=== PATIENT | female | born 1980 | race Caucasian/White ===

== ENCOUNTER 2018-02-15 18:09 | Emergency (ER) | payer MEDICAID, SELFPAY ==
[2018-02-15] MEDS ORDERED: Ketorolac Tromethamine 30 MG/ML VIAL ONE (18:37)
[2018-02-15] MEDS ORDERED: diphenhydrAMINE 50 MG/ML VIAL ONE (18:37)
[2018-02-15] MEDS ORDERED: Metoclopramide HCl 10 MG/2 ML VIAL ONE (18:37)
[2018-02-15 18:59] LABS: #Basophils 0.1 thou/uL (0.0-0.2); #Eosinphils 0.1 thou/uL (0.0-0.7); #Monocytes 0.5 thou/uL (0.11-0.59); #Neutrophils 4.4 thou/uL (1.40-6.50); %Basophils 0.8 % (0.0-1.0); %Eosinophils 1.4 % (0.0-10.0); %Lymphocytes 37.1 % (21.0-51.0); %Monocytes 5.7 % (0.0-10.0); %Neutrophils 55.1 % (42.0-75.0); Hemoglobin 11.7 g/dL (12.0-16.0); Mean Corpuscular HGB CONC 33.8 g/dL (32.0-36.0); Mean Corpuscular Hemoglobin 27.9 pg (27.0-31.0); Mean Corpuscular Volume 82.7 fL (78.0-98.0); Mean Platelet Volume 6.5 fL (7.4-10.4); Platelet Count 283 thou/uL (130-400); RBC Distribution Width 13.1 % (11.5-14.5)
[2018-02-15 19:21] LABS: ALT (SGPT) 26 U/L (8-55); AST (SGOT) 17 U/L (5-34); Albumin 3.8 g/dL (3.5-5.0); Alkaline Phosphatase 80 U/L (40-150); Anion Gap 9 mmol/L (10-20); BUN (Urea Nitrogen) 8 mg/dL (7.0-18.7); Bilirubin, Total 0.6 mg/dL (0.2-1.2); Calc. Creatinine Clearance 0 mL/min (70-130); Calcium 8.8 mg/dL (7.8-10.44); Carbon Dioxide 25 mmol/L (22-29); Chloride 107 mmol/L (98-107); Estimated GFR-MDRD 88; Globulin 2.8 g/dL (2.4-3.5); Glucose 91 mg/dL (70-105); Potassium 3.2 mmol/L (3.5-5.1); Protein, Total 6.6 g/dL (6.0-8.3); Sodium 138 mmol/L (136-145)
--- NOTE | 2018-02-15 20:21 | RAD ---
SHUNTOGRAM SIX IMAGES: Indication: History of stroke and intraperitoneal shunt placement. History of headache. FINDINGS: There is a PEG catheter within the left quadrant of the abdomen. The left frontal ventricular cathete r along its cranial segment appears intact. The course of the catheter along its subcutaneous course within the neck appears intact. The course along the left chest wall appears intact. The course coile d within the lower pelvis appears intact. There is two knob like portions of the catheter seen within the left midabdomen likely relating to a port junction that is likely intact. This type of VETERINARY PHARMACOLOGIST-cathet er I am unfamiliar with, but appears specifically designed to have this appearance. There is no overt disruption. The bowel gas pattern is unobstructed. The visualized lungs are clear. No definite osseo us abnormality is apparent. Portions of the right calvarium are missing. IMPRESSION: Visualized chest tubing appears intact. POS:
--- NOTE | 2018-02-15 20:25 | CT ---
CT HEAD WITHOUT CONTRAST: Indications: Headache. History of prior craniotomy. Cranial flap has not been placed. A COT ASSEMBLER shunt is in place. Comparison: There are no comparison studies. FINDINGS: Craniectomy changes. Large area of frontoparietal bone has been resected. There is volume loss of the right frontal lobe either due to surgery or prior insult. The ventricles have normal size and position. A shunt catheter enters via the left frontal lobe and t he tip enters through the left anterior horn and the tip overlies the midline. Ventricular size is wi thin normal range. No acute hemorrhage. No evidence of acute infarct. IMPRESSION: 1. Post op findings with large craniectomy defect. Volume loss and/or resection of the right frontal lobe and portions of the right temporal and parietal lobes. 2. Shunt catheter appears adequately positioned. 3. Ventricular size is within normal range. POS: MUSA
== END 2018-02-15 21:55 | disposition home or self-care (01) ==
LOC: ERS 18:09
DX: R51 Headache (principal); F32.9 Major depressive disorder, single episode, unspecified; Z79.899 Other long term (current) drug therapy; Z79.01 Long term (current) use of anticoagulants
CPT/HCPCS: 36415; 70450; 75809; 80053; 85025; 96365; 96366; 96375; J1200; J1885; J2765

== ENCOUNTER 2018-08-07 20:13 | Emergency (ER) | payer MEDICARE, SELFPAY ==
[2018-08-07 20:58] LABS: #Eosinphils 0.1 thou/uL (0.0-0.7); #Lymphocytes 1.3 thou/uL (1.20-3.40); #Monocytes 0.7 thou/uL (0.11-0.59); #Neutrophils 12.8 thou/uL (1.40-6.50); %Basophils 0.2 % (0.0-1.0); %Eosinophils 0.5 % (0.0-10.0); %Lymphocytes 8.9 % (21.0-51.0); %Monocytes 4.4 % (0.0-10.0); Hemoglobin 13.4 g/dL (12.0-16.0); Mean Corpuscular HGB CONC 33.4 g/dL (32.0-36.0); Mean Corpuscular Hemoglobin 27.6 pg (27.0-31.0); Mean Corpuscular Volume 82.7 fL (78.0-98.0); Mean Platelet Volume 6.7 fL (7.4-10.4); Platelet Count 307 thou/uL (130-400); RBC Distribution Width 13.8 % (11.5-14.5); Red Blood Cell (RBC) Count 4.85 mill/uL (4.20-5.40); White Blood Cell (WBC) Count 14.9 thou/uL (4.8-10.8)
[2018-08-07 21:27] LABS: ALT (SGPT) 25 U/L (8-55); AST (SGOT) 14 U/L (5-34); Albumin 3.9 g/dL (3.5-5.0); Alkaline Phosphatase 92 U/L (40-150); Anion Gap 13 mmol/L (10-20); BUN (Urea Nitrogen) 6 mg/dL (7.0-18.7); Bilirubin, Total 0.6 mg/dL (0.2-1.2); Calc. Creatinine Clearance 0 mL/min (70-130); Calcium 8.8 mg/dL (7.8-10.44); Carbon Dioxide 24 mmol/L (22-29); Chloride 106 mmol/L (98-107); Estimated GFR-MDRD Greater than 90; Globulin 3.1 g/dL (2.4-3.5); Glucose 105 mg/dL (70-105); Potassium 3.8 mmol/L (3.5-5.1); Sodium 139 mmol/L (136-145)
--- NOTE | 2018-08-07 22:40 | CT ---
BRAIN CT WITHOUT IV CONTRAST 08/07/18 HISTORY: 37-year-old female with history of new seizure onset, vomiting, history of CVA, right sided hemorrhag e. COMPARISON: 02/15/18. There is very extensive right craniectomy with very severe volume loss on the right side and extensiv e right sided encephalomalacia. This is mostly in the frontal, temporal, and anterior parietal region s. Left sided ventriculostomy tube in place. No new mass or hemorrhage. IMPRESSION: Stable extensive right sided craniectomy. Extensive encephalomalacia on the right side, stable. Left sided ventriculostomy tube. No mass or bleed. POS: MIN
[2018-08-07] MEDS ORDERED: Acetaminophen 500 MG TAB ONE (22:43)
[2018-08-07] MEDS ORDERED: levETIRAcetam 2,000 MG in Sodium Chloride 0.9% 100 ML IVPB ONE (22:45)
== END 2018-08-08 00:18 | disposition home or self-care (01) ==
LOC: ERS 20:13
DX: R56.9 Unspecified convulsions (principal); F41.9 Anxiety disorder, unspecified; F32.9 Major depressive disorder, single episode, unspecified; Z86.73 Personal history of transient ischemic attack (TIA), and cerebral infarction without residual deficits; Z79.899 Other long term (current) drug therapy
CPT/HCPCS: 36415; 70450; 80053; 85025; 93005; 96365; J1953; J7050

== ENCOUNTER 2020-01-16 01:08 | Inpatient (IN) | payer OTHER ==
[2020-01-16] MEDS ORDERED: Acetaminophen 325 MG TAB PO PRN ×2 (02:27→05:30)
[2020-01-16] MEDS ORDERED: Senokot S 8.6-50 MG TAB PO PRN ×2 (02:27→05:31)
[2020-01-16] MEDS ORDERED: levETIRAcetam In NaCl (Iso-Os) 1,000 MG in Premix Bag 1 BAG IVPB SCH ×3 (02:45→09:00)
[2020-01-16 04:51] LABS: #Basophils 0.1 thou/uL (0.0-0.2); #Eosinphils 0.2 thou/uL (0.0-0.7); #Lymphocytes 3.2 thou/uL (1.20-3.40); #Monocytes 0.7 thou/uL (0.11-0.59); %Basophils 0.6 % (0.0-1.0); %Lymphocytes 28.9 % (21.0-51.0); %Monocytes 6.3 % (0.0-10.0); %Neutrophils 62.3 % (42.0-75.0); Hemoglobin 14.2 g/dL (12.0-16.0); Mean Corpuscular HGB CONC 34.1 g/dL (32.0-36.0); Mean Corpuscular Hemoglobin 30.3 pg (27.0-31.0); Mean Corpuscular Volume 88.9 fL (78.0-98.0); Mean Platelet Volume 7.5 fL (7.4-10.4); Platelet Count 265 thou/uL (130-400); RBC Distribution Width 12.3 % (11.5-14.5); White Blood Cell (WBC) Count 11.2 thou/uL (4.8-10.8)
[2020-01-16 05:13] LABS: Anion Gap 11 mmol/L (10-20); BUN (Urea Nitrogen) Less than 4 mg/dL (7.0-18.7); Calc. Creatinine Clearance 0 mL/min (70-130); Calcium 8.5 mg/dL (7.8-10.44); Carbon Dioxide 18 mmol/L (22-29); Cardiac Risk 2.2 (Less than 4.5); Chloride 114 mmol/L (98-107); Cholesterol 65 mg/dl (< 200 Desired); Estimated GFR-MDRD Greater than 90; Glucose 81 mg/dL (70-105); HDL Cholesterol 29 mg/dL (>60 Neg Risk); LDL Cholesterol, Calculated 30 mg/dL; Potassium 3.6 mmol/L (3.5-5.1); Sodium 139 mmol/L (136-145); Triglycerides 28 mg/dL (Less than 150)
[2020-01-16 05:27] VITALS: BMI 27.0
--- NOTE | 2020-01-16 05:41 | HP ---
CHIEF COMPLAINT: Change in mental status. HISTORY OF PRESENT ILLNESS: The patient is a 39-year-old female with a history of stroke, status post craniotomy on the right side, who presents to the hospital with change in mental status x1 day. The patient's mother stated that the patient's daughter actually called her on Friday stating that the patient was confused and not talking. The patient normally at baseline is able to communicate. She is bed bound, but able to communicate without any problems. Per the patient's mom, Curt, the patient had about 4 seizures on Friday and had 2 seizures today, Friday. She is on medications for seizure precautions and has been compliant with her medications. Per patient's mom, the patient has not had any fevers or chills and has not been sick recently. The patient's seizures are normally left-sided stiffness and stares into space; however, she does not really have a postictal state. It appears to be focal seizures based on how she was describing. She also states that before the patient has a seizure, she feels a burning sensation of indigestion in her stomach area. PAST MEDICAL HISTORY: The patient has a history of strokes. 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 PAST SURGICAL HISTORY: She has had a shunt to her brain. She has a PEG tube. She has a craniotomy on the right side, tubal ligation. SOCIAL HISTORY: No alcohol use, drug use, or smoking history. She is a full code. She lives with her daughter. REVIEW OF SYSTEMS: Unable to obtain. The patient is really nonverbal. FAMILY HISTORY: History of cardiac disease in the family. PHYSICAL EXAMINATION: VITAL SIGNS: Temperature of 98.4, heart rate 82, respiratory rate 19, blood pressure 112/73, oxygen saturation 98% on room air. GENERAL: She is awake, follows commands. The patient is currently nonverbal. CV: S1 and S2 present. No murmurs, rubs, or gallops. LUNGS: Clear to auscultation. No rhonchi or wheezes noted. ABDOMEN: Soft and nontender. Bowel sounds are present x2. She does have a PEG tube. EXTREMITIES: She has mild 1+ lower extremity edema. NEUROVASCULAR: She does have weakness to her left upper extremity. She is able to move her left lower extremities bilaterally. The patient has a shunt to her left side of the brain. No pain upon palpation. She does have a significant craniotomy on the right side. LABORATORY RESULTS: As of the following; WBCs of 10.3, hemoglobin of 14.9, hematocrit of 46.5, platelets of 283. Chemistry; sodium 145, potassium of 4.2, BUN of 4, creatinine 0.84. LFTs are normal. The patient had a CT brain, which did not show any acute abnormalities. Per the ER doc, there was no read-up. ALLERGIES: SHE HAS NO KNOWN DRUG ALLERGIES. HOME MEDICATIONS: 1. Xarelto 20 mg daily. 2. Keppra 500 mg t.i.d. 3. Gabapentin 300 mg t.i.d. ASSESSMENT AND PLAN: The patient is a very pleasant 39-year-old female, who presents to the hospital for change in mental status. 1. Acute metabolic encephalopathy, could be secondary to seizure versus stroke versus malfunction of her shunt. We will put her on Keppra 1500 mg twice a day. Neurology has been consulted. We will do an EEG. We will do an MRI brain. Also we will get an echo. The patient has been taking Xarelto and has not had any seizures since Xarelto. We will await Neurology's recommendation. The patient's mother stated that she feels that her shunt appears to be more guzman than usual. I did palpate her shunt area, she had no pain, but there was some fullness; however, it is hard for me to say if it is draining or it is working appropriately. We may have to get Neurosurgery for this evaluation. 2. History of strokes. We will continue the Xarelto. We will get an MRI and echo. 3. Deep venous thrombosis prophylaxis. The patient is already on Xarelto. The patient was initially taken to [facility]; however, the patient's mom brought her here because per Curt, which is the patient's mom, stated that she would not be fed for about 3 days. I will go ahead and get a speech evaluation and also her Neurosurgeon is Dr. Travis and her Neurologist is Dr. Lau. Job ID: [id number]
[2020-01-16] MEDS: levETIRAcetam In NaCl (Iso-Os) 1,500 MG in Premix Bag 1 BAG IVPB SCH ×2 (08:49→21:04)
[2020-01-16] MEDS: Gabapentin 300 MG CAP PO SCH ×3 (08:53→21:05)
[2020-01-16] MEDS ORDERED: Enoxaparin Sodium 40 MG/0.4 ML SYRINGE SC SCH (09:00)
[2020-01-16] MEDS ORDERED: Gabapentin 300 MG CAP PO SCH (09:00)
--- NOTE | 2020-01-16 11:17 | PDOC.EVN ---
Event Note - Event Note Event Note: Spoke to the patient's grandmother. Patient's grandmother states she had three seizures yesterday at outside hospital. Prior to that, she had not had a seizure in three years. She states that there was drooling coming out of her mouth. Berto'ts grandmother was angry because they told her she wouldn't be fed for three days. Grandmother states that lately , patient has been off and making wild decisions. Normally she is more talkative, but lately she has been more drowsy. She has old stroke from two years ago with some left sided weakness Patient has no complaints no headache, numbness, weakness, SOB, chest pain Vitals : stable Gen: patient intermittently drowsy Head: craniotomy on right side. No palpable mass felt on right side of head Neuro: CN II - XII intact. LUE weakness, LLE weakness. 5/5 strength to finger cookie mixer helper and plantarflexion bilaterally Abdomen: +BS, soft, nontender, nondistended Extremities: no edema Labs; WBC 11.2 A/P: #Acute metabolic encephalopathy likely from seizure #History of CVA #History of shunt placement and craniotomy - on keppra 1500 mg IV bid. Neurology consulted. EEG ordered - MRI brain to be ordered. Neurosurgery consult if any shunt malfunction - continue xarelto #Leukocytosis - WBC 11.2, stable, will monitor
--- NOTE | 2020-01-16 13:04 | CON ---
DATE OF CONSULTATION: 01/16/2020 CONSULTING PHYSICIAN: Hospitalist Service. IMPRESSION: 1. Recurrent seizures. 2. Past history of right hemispheric stroke. 3. Residual left hemiparesis. PLAN: 1. Keppra is being increased to 1500 mg twice a day. 2. MRI of the brain to rule out any acute physical change. HISTORY OF PRESENT ILLNESS: Ms. Sue is a 39-year-old white female with reported history of a stroke 2 years ago. She has been on Xarelto since then. She lives in the [place] area. Her son reports that she is wheelchair bound. She is usually able to communicate and to push herself around with her foot. She had multiple breakthrough seizures earlier this week. Two days ago, she was taken to the [facility] due to the fact that she seemed to be slurring her speech. They were concerned that she may have had a stroke. She was admitted briefly. Apparently, family was concerned about the level of care. They subsequently brought her here and she was admitted for further evaluation. She had a CT of the brain, which showed a large impression of the right calvarium with ex vacuo changes and shunt in place. Her lab work showed an unremarkable CBC and serum chemistries other than a bicarb of 18. 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 PAST SURGICAL HISTORY: Shunt placement, PEG tube placement, craniotomy, tubal ligation. SOCIAL HISTORY: No alcohol or drugs. FAMILY HISTORY: Unremarkable. REVIEW OF SYSTEMS: 10-system review of systems is otherwise negative. PHYSICAL EXAMINATION: GENERAL: She is a well-nourished, middle-aged woman, in no distress. VITAL SIGNS: Blood pressure 112/73, pulse 82, respirations 16, and temperature 98.4. HEENT: The right cranium is concave. Pupils are equal. Conjunctivae clear. Oropharynx clear. NECK: Supple. No lymphadenopathy. CARDIOVASCULAR: Regular rate and rhythm. LUNGS: Clear. EXTREMITIES: No cyanosis or edema. NEUROLOGIC: She was alert and cooperative. She follows commands appropriately. Her speech was clear. Cranial nerves appear to be intact. Motor exam shows spastic weakness of the left arm and leg. She had antigravity strength with the leg, but not with the arm. Sensation was subjectively decreased on the left. Gait was not testable. LABORATORY STUDIES: Reviewed. IMAGING: Reviewed. SUMMARY: I agree with the increase in Keppra dose. I am uncertain as to the significance of the episode of dysarthria. She has been having multiple seizures, which could account for some transient speech change as well. I agree with your workup and be available if you have further questions. Job ID: [id number]
--- NOTE | 2020-01-16 13:47 | MRI ---
MRI BRAIN WITHOUT CONTRAST: History: 39-year-old female with seizures. Comparison: None. Correlation: CT scan 01-15-2020, 08-07-2018 FINDINGS: Post op changes of extensive right craniectomy and right sided encephalomalacia are again seen. The v entricular size is stable. There is a moderate sized area of restricted diffusion in the left MCA ter ritory. This demonstrates increased T2 signal and low signal on ADC map. No evidence of hemorrhage is seen. IMPRESSION: Acute left MCA infarction. POS: CARO
[2020-01-16] MEDS ORDERED: Aspirin 325 MG TAB PO SCH (16:15)
[2020-01-16] MEDS: Rivaroxaban 10 MG TAB PO SCH (17:46)
[2020-01-16] MEDS ORDERED: Rivaroxaban 10 MG TAB PO SCH (18:00)
[2020-01-16] MEDS ORDERED: Atorvastatin Calcium 40 MG TAB PO SCH (21:00)
[2020-01-16] MEDS: Atorvastatin Calcium 40 MG TAB PO SCH (21:06)
--- NOTE | 2020-01-16 21:44 | CON ---
DATE OF CONSULTATION: 01/16/2020 Ms. Sue is a very pleasant 39-year-old female with prior history of a right MCA stroke, requiring a right hemicraniectomy at an outside institution in [place] a few years ago. She has never had replacement of the bone flap, however, she recently saw Dr. Travis in August 2019 to discuss replacement. It was discussed that a 3D synthetic implant could be manufactured in order for Dr. Travis to pursue a right-sided cranioplasty. However, it seems that this plan was delayed due to COVID-19. The patient is currently admitted for stroke workup after recent seizures and onset of expressive aphasia. Family voiced concern that this may be related to a shunt malfunction, however, CT of the brain without contrast revealed stable findings and no hydrocephalus compared to prior study from July 2018. An MRI of the brain was performed, which shows a new left MCA infarct. On exam, the patient is awake, alert, and appropriate. She responds to questions appropriately. She is oriented to self, location, and year. She incorrectly stated the day of the week in the month, however. Cranial nerves II through XII are grossly intact. Pupils are equal, round, and reactive to light bilaterally. Extraocular movements are intact. No tongue fasciculations. She has chronic left-sided upper and lower extremity weakness from her prior right MCA stroke. However, she exhibits 5/5 strength throughout all right upper and lower extremity myotomes. Gait was not assessed. However, the patient reports that she is nonambulatory at baseline. I checked the patient's shunt setting and found it to be at 0.5 this evening. I could not locate any prior records indicating her shunt setting at baseline. Per review of shunt series completed in 2017, her shunt was previously set at 1.5. Therefore, I have reset the shunt to 1.5 this evening. I discussed with both the patient and her mother at bedside that I have no concerns for shunt malfunction at this time given her stable brain CT compared to prior studies. At this time, she will just need completion of her stroke workup and a Neurology consult. Our team will defer to Dr. Travis with regards to moving forward for manufacturing of synthetic bone implant and cranioplasty. We will update him about patient's hospitalization this weekend. From a neurosurgical standpoint, the patient is stable for discharge at any time. Please call for any questions or concerns. Job ID: [id number] EVERETTE
--- NOTE | 2020-01-17 08:09 | PRG ---
DATE OF SERVICE: 01/17/2020 This is a 50-minute initial hospital visit note, in which 50 minutes were spent reviewing the imaging record, evaluation and examination of the patient, and formulation of plan. Greater than 50% time was spent in counseling on Trini Sue. SUBJECTIVE: Ms. Sue is a 39-year-old woman, who in 2017, underwent a right frontotemporal-parietal hemicraniectomy for malignant MCA infarct and edema at [facility]. She subsequently had a left-sided shunt placed. They then relocated 2 hours from here and established care with Dr. Travis. The plan was for a custom skull implant back in August. 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 Nevertheless, the patient has been neurologically at her baseline until a few days ago when I was contacted by an outside institution in [facility] and stated that the patient was having periods of aphasia. They did not have an MRI scanner there and the suspicion was this may have been related to seizure. I did request a head CT that they had done then be sent to us. She was subsequently discharged or left AMA in the care of her mother and brought to [place], where she has been admitted. MRI demonstrates a left acute insular stroke. She now has bihemispheric infarcts. Surprisingly, she is neurologically at her baseline with baseline left-sided hemiplegia, but speech is intact and fluent this morning when I am seeing her. Her head CT again demonstrated stability compared to July 2018. MRI is as aforementioned. She has been initiated on Xarelto and is going to undergo a stroke workup with Neurology. I have let Dr. Travis's team know that the patient is here. We have checked her shunt. It was changed from 1.5 to 0.5 after the MRI. Given its programmable nature, we have put her back on 1.5. Obviously, consideration could be given to a CT scan per [employer] protocol for PEEK skull implants while the patient is here, but there is nothing urgent or emergent from a neurosurgical standpoint. Job ID: [id number]
[2020-01-17] MEDS: Gabapentin 300 MG CAP PO SCH ×3 (08:31→21:30)
[2020-01-17] MEDS: levETIRAcetam In NaCl (Iso-Os) 1,500 MG in Premix Bag 1 BAG IVPB SCH (08:31)
[2020-01-17 09:53] LABS: Hemoglobin 12.1 g/dL (12.0-16.0); Mean Corpuscular HGB CONC 33.7 g/dL (32.0-36.0); Mean Platelet Volume 6.8 fL (7.4-10.4); Platelet Count 230 thou/uL (130-400); RBC Distribution Width 12.2 % (11.5-14.5); Red Blood Cell (RBC) Count 4.02 mill/uL (4.20-5.40); White Blood Cell (WBC) Count 7.4 thou/uL (4.8-10.8)
--- NOTE | 2020-01-17 11:59 | PDOC.HOSPP ---
- Subjective Encounter Date: 01/17/20 Subjective: NEUROLOGY PROGRESS NOTE Patient alert , awake and following commands. No further seizures overnight. Keppra dose increased which she tolerated well. EEG ongoing. - Objective Vital Signs & Weight: Vital Signs (12 hours) Temp Pulse Resp BP BP Pulse Ox 01/17/20 07:45 97.8 F 63 16 95/56 L 96 01/17/20 04:00 98.5 F 78 16 95/57 L 97 01/17/20 00:15 97.7 F 64 18 90/52 L 96 Weight Weight 157 lb 6.4 oz I&O: 01/16/20 01/17/20 01/18/20 06:59 06:59 06:59 Intake Total 1560 Output Total 650 Balance 910 Result Diagrams: 01/17/20 09:35 01/16/20 04:37 Hospitalist ROS - Review of Systems Constitutional: denies: fever, chills, sweats, weakness, malaise, other Eyes: denies: pain, vision change, conjunctivae inflammation, eyelid inflammation, redness, other ENT: denies: ear pain, ear discharge, nose pain, nose discharge, nose congestion , mouth pain, mouth swelling, throat pain, throat swelling, other Respiratory: denies: cough, dry, shortness of breath, hemoptysis, SOB with excertion, pleuritic pain, sputum, wheezing, other Cardiovascular: denies: chest pain, palpitations, orthopnea, paroxysmal noc. dyspnea, edema, light headedness, other Gastrointestinal: denies: nausea, vomiting, abdominal pain, diarrhea, constipation, melena, hematochezia, other Genitourinary: denies: dysuria, frequency, incontinence, hematuria, retention, other Musculoskeletal: denies: neck pain, shoulder pain, arm pain, back pain, hand pain, leg pain, foot pain, other Neurological: reports: weakness, incoordination, confusion, seizures - Medication Medications: Active Medications Generic Name Dose Route Start Last Admin Trade Name Freq PRN Reason Stop Dose Admin Atorvastatin Calcium 40 mg 01/16/20 21:00 01/16/20 21:06 Lipitor PO 40 mg HS ALFONSO Administration Gabapentin 300 mg 01/16/20 09:00 01/17/20 08:31 Neurontin PO 300 mg TID ALFONSO Administration Levetiracetam 1,500 mg/ Device 100 mls @ 200 mls/hr 01/16/20 09:00 01/17/20 08:31 IVPB 100 mls BID ALFONSO Administration Rivaroxaban 20 mg 01/16/20 18:00 01/16/20 17:46 Xarelto PO 20 mg 1800 ALFONSO Administration - Exam General Appearance: awake alert Eye: PERRL Heart: RRR Respiratory: CTAB Gastrointestinal: soft Skin: normal turgor Neurological: facial droop, speech deficit Neurological - other findings: hemiparesis Psychiatric: normal affect, normal behavior, A&O x 3, oriented to person, oriented to place, oriented to time Hosp A/P (1) Breakthrough seizure Code(s): G40.919 - EPILEPSY, UNSP, INTRACTABLE, WITHOUT STATUS EPILEPTICUS Status: Acute Plan: 39 year old with epilepsy due to old CVA presented with acute infarction and 3 breakthrough seizures. Keppra dose increased to 1500 mg twice daily. Observe seizure precautions. Ativan 2 mg IV for seizures greater than 2 minutes. EEG ongoing. Will follow up on read. (2) Acute CVA (cerebrovascular accident) Code(s): I63.9 - CEREBRAL INFARCTION, UNSPECIFIED Status: Acute Plan: MRI brain reviewed which revealed acute infarction in left MCA territory Telemetry. Neurochecks every 4 hours. Check Hypercoaguable panel. Permissive BP control at this time. Check 2 D ech and carotid dopplers. Continue aspirin and statin for secondary stroke prevention. PT/OT/Speech. Plan discussed with the stroke floor team during MDR rounds and with the mother. (3) Hypertension Code(s): I10 - ESSENTIAL (PRIMARY) HYPERTENSION Status: Acute Plan: Permissive BP control at this time due to acute infarction. (4) Hyperlipidemia Code(s): E78.5 - HYPERLIPIDEMIA, UNSPECIFIED Status: Acute Plan: Continue high intensity statin for secondary stroke prevention. (5) Status post craniotomy Status: Acute Plan: Stable Neurosurgery on board. - Plan plan discussed w/ family, PT/OT, speech therapy, DVT proph w/SCDs
[2020-01-17 13:30] LABS: Chloride 108 mmol/L (98-107); Potassium 3.9 mmol/L (3.5-5.1); Sodium 139 mmol/L (136-145)
[2020-01-17 13:31] LABS: Calcium 8.4 mg/dL (7.8-10.44); Glucose 106 mg/dL (70-105)
[2020-01-17 13:33] LABS: Anion Gap 9 mmol/L (10-20); Carbon Dioxide 26 mmol/L (22-29)
[2020-01-17 13:35] LABS: Calc. Creatinine Clearance 107 mL/min (70-130); Estimated GFR-MDRD 80
[2020-01-17 13:36] LABS: BUN (Urea Nitrogen) 4 mg/dL (7.0-18.7)
[2020-01-17] MEDS ORDERED: Iopamidol-370 76% 500 ML 1 ML ONE (13:58)
[2020-01-17 15:08] LABS: Bacteria/HPF 3+ HPF (None Seen); Bilirubin Negative (Negative); Blood, Urine 3+ (Negative); Clarity Turbid (Clear); Glucose, Urine (Dipstick) Normal (Negative); Leukocyte 250 Leu/uL (Negative); Nitrite 1+ (Negative); Protein, Urine (Dipstick) 30 mg/dL (Neg-Trace); RBC/HPF Greater than 50 HPF (0-3); Squamous Epithelial 0-3 HPF (0-3); Urobilinogen Normal mg/dL (Less than 2)
--- NOTE | 2020-01-17 17:44 | ULT ---
CAROTID DOPPLER: Indications: Stroke workup Technique: Ultrasound and doppler study is performed of the extracranial carotid arteries. Color dopp ler and spectral analysis performed. FINDINGS: Right carotid system shows no significant plaque. Velocity recordings on the right are normal. On there is left there is plaque in the proximal left ICA and bulb which appears to produce significa nt stenosis. Velocities are elevated at 133 cm/sec systolic. Vertebral arteries show antegrade flow. IMPRESSION: Evidence of hemodynamically significant stenosis in the proximal left internal carotid artery. Recomm end further evaluation with CTA neck for better characterization. POS: AGW
[2020-01-17] MEDS: Rivaroxaban 10 MG TAB PO SCH (18:37)
--- NOTE | 2020-01-17 19:37 | PDOC.HOSPP ---
- Subjective Encounter Date: 01/17/20 Encounter Time: 10:30 Subjective: The patient has had no seizures overnight. She has no new complaints. She only has mild headache. Has baseline left sided weakness Mom states that patient had prior stroke two years ago. She had DVT and was found to have a PFO and underwent a mechanical thrombectomy after which she developed hydrocephalus requiring shunt placement - Objective Vital Signs & Weight: Vital Signs (12 hours) Temp Pulse Resp BP BP Pulse Ox 01/17/20 16:00 98.6 F 57 L 16 94/43 L 99 01/17/20 12:00 98.3 F 84 16 94/64 98 01/17/20 07:45 97.8 F 63 16 95/56 L 96 Weight Admit Weight 157 lb 6.4 oz Weight 157 lb 6.4 oz I&O: 01/16/20 01/17/20 01/18/20 06:59 06:59 06:59 Intake Total 1560 1100 Output Total 650 600 Balance 910 500 Result Diagrams: 01/17/20 09:35 01/17/20 12:56 Hospitalist ROS - Review of Systems Constitutional: denies: fever, chills - Medication Medications: Active Medications Generic Name Dose Route Start Last Admin Trade Name Freq PRN Reason Stop Dose Admin Atorvastatin Calcium 40 mg 01/16/20 21:00 01/16/20 21:06 Lipitor PO 40 mg HS ALFONSO Administration Gabapentin 300 mg 01/16/20 09:00 01/17/20 14:46 Neurontin PO 300 mg TID ALFONSO Administration Levetiracetam 1,500 mg/ Device 100 mls @ 200 mls/hr 01/16/20 09:00 01/17/20 08:31 IVPB 100 mls BID ALFONSO Administration Rivaroxaban 20 mg 01/16/20 18:00 01/17/20 18:37 Xarelto PO 20 mg 1800 ALFONSO Administration - Exam General - other findings: crowsy Eye: PERRL, anicteric sclera ENT: normocephalic atraumatic, no oropharyngeal lesions Neck: supple, no JVD Heart: RRR, no murmur, no gallops, no rubs Respiratory: CTAB, no wheezes, no rales, no ronchi Gastrointestinal: soft, non-tender, non-distended, normal bowel sounds Extremities: no cyanosis, no clubbing, no edema Skin: normal turgor, no lesions, no rashes Neurological: cranial nerve grossly intact, normal sensation to touch, no focal deficits, no new deficit Neurological - other findings: left sided weakness, cannot lift arm, can lift leg. Right 5/5 upper and low Musculoskeletal: normal tone, normal strength, no muscle wasting Psychiatric: normal affect, normal behavior, A&O x 3, oriented to person Hosp A/P - Plan Carotid doppler: hemodynamically significant stenosis in the proximal left ICA. MRI brain: acute left MCA infarction This is a 39 year old female presenting with difficulty speaking, slurred speech , found to have a stroke Acute left MCA infarction - started aspirin 81 mg, continue xarelto and statin - carotid doppler showing hemodynamically significant stenosis in proximal left ICA. Will check CTA neck - PT/OT and speech recommending home health. Case management was consulted Acute metabolic encephalopathy secondary to seizure - EEG normal per Dr Jacinto - will switch keppra to oral 1500 mg bid #History of DVT and PFO #History of prior CVA with left sided weakness # History of intracranial shunt - continue xarelto - no hydrocephalus on exam. Per neurosurgery no further workup needed from that standpoint
[2020-01-17] MEDS: levETIRAcetam 500 MG TAB PO SCH (21:29)
[2020-01-17] MEDS: Atorvastatin Calcium 40 MG TAB PO SCH (21:30)
--- NOTE | 2020-01-18 07:48 | CT ---
CT ANGIO OF NECK PERFORMED WITH INTRAVENOUS CONTRAST ENHANCEMENT AND 3D RECONSTRUCTIONS: History: Stroke. Abnormal left internal carotid artery reported on recent carotid ultrasound. Comparison: Carotid ultrasound done earlier today. FINDINGS: The lung apices are clear. Thyroid gland is within normal limits of size. No significant jugular anshu n adenopathy. The parotid and submandibular gland regions appear unremarkable. Parapharyngeal spaces appear clear. The angiographic portion of this study demonstrates a separate origin of the left internal carotid ar brianna from the aortic arch. The vertebral arteries shows the left to be slightly larger than the right but both contribute to the basilar artery. On the right side the right common carotid as well as internal and external carotid arteries show no significant stenosis. On the left side the left common carotid artery is normal in appearance. There is prominent soft plaq ue formation in the proximal left internal carotid artery over an approximately 1.7 cm segment. The d istal tip of this thrombus is surrounded by contrast and the possibility that this would dislodge be a definite consideration. There is significant narrowing of the internal carotid artery related to th is prominent soft plaque. It is felt to represent greater than 60-70% narrowing at its most significa nt area of stenosis. IMPRESSION: Very prominent soft plaque formation over a fairly long segment of the proximal internal carotid onel ry with 60-70% narrowing. The more distal end of the thrombus is encircled by contrast suggesting betty t this is a free floating fragment and the possibility that this could embolize would be a strong con sideration in this case. POS: JHONNY
[2020-01-18] MEDS: levETIRAcetam 500 MG TAB PO SCH ×2 (09:33→21:12)
[2020-01-18] MEDS: Gabapentin 300 MG CAP PO SCH ×3 (09:33→21:12)
[2020-01-18] MEDS: Aspirin 81 mg Enteric Coated Tablet PO SCH (09:33)
--- NOTE | 2020-01-18 09:35 | EEG ---
DATE OF SERVICE: 01/17/2020 ATTENDING PHYSICIAN: Sandy Jacinto MD. This EEG was performed using 24-channel [employer] video digital EEG machine with 24-disk electrodes. This was an extended 2-hour 7-minute of inpatient video EEG recording. Digital analysis of the EEG was done for spike and seizure detection, which revealed no abnormalities. BACKGROUND: Posterior background rhythm was not observed. HYPERVENTILATION: Not performed. PHOTIC STIMULATION: Not performed. SLEEP: Drowsiness and sleep observed. EEG DIAGNOSIS: 1. High amplitude theta delta activity, at times intermixed with rare spikes seen in the right frontotemporal region. 2. Irregular theta activity seen throughout the recording with superimposed beta. 3. Absence of posterior background rhythm. CLINICAL INTERPRETATION: This EEG is consistent with interictal expression of partial epilepsy with potential epileptogenicity in the right frontotemporal region in the setting of focal cerebral dysfunction in the same region. There is also evidence of moderate generalized nonspecific cerebral dysfunction. No electrographic seizures captured during the recording. Job ID: [id number]
--- NOTE | 2020-01-18 12:49 | PDOC.HOSPP ---
- Subjective Encounter Date: 01/17/20 Subjective: NEUROLOGY PROGRESS NOTE Patient alert , awake and following commands. No further seizures since admission. Keppra dose increased which she tolerated well. EEG negative for seizures. - Objective Vital Signs & Weight: Vital Signs (12 hours) Temp Pulse Pulse Resp BP BP Pulse Ox 01/18/20 11:22 98.3 F 77 16 92/58 L 98 01/18/20 08:50 78 92/57 L 01/18/20 07:52 97.5 F L 69 18 93/53 L 98 01/18/20 04:38 97.4 F L 63 14 92/52 L 96 Weight Admit Weight 157 lb 6.4 oz Weight 157 lb 6.4 oz I&O: 01/17/20 01/18/20 01/19/20 06:59 06:59 06:59 Intake Total 1560 1340 Output Total 650 600 Balance 910 740 Result Diagrams: 01/17/20 09:35 01/17/20 12:56 Radiology Reviewed by me: Yes EKG Reviewed by me: Yes Hospitalist ROS - Review of Systems Constitutional: denies: fever, chills, sweats, weakness, malaise, other Eyes: denies: pain, vision change, conjunctivae inflammation, eyelid inflammation, redness, other ENT: denies: ear pain, ear discharge, nose pain, nose discharge, nose congestion , mouth pain, mouth swelling, throat pain, throat swelling, other Respiratory: denies: cough, dry, shortness of breath, hemoptysis, SOB with excertion, pleuritic pain, sputum, wheezing, other Cardiovascular: denies: chest pain, palpitations, orthopnea, paroxysmal noc. dyspnea, edema, light headedness, other Gastrointestinal: denies: nausea, vomiting, abdominal pain, diarrhea, constipation, melena, hematochezia, other Genitourinary: denies: dysuria, frequency, incontinence, hematuria, retention, other Musculoskeletal: denies: neck pain, shoulder pain, arm pain, back pain, hand pain, leg pain, foot pain, other Skin: denies: rash, lesions, kwabena, bruising, other Neurological: reports: weakness, numbness, confusion, seizures. denies: incoordination, change in speech, other - Medication Medications: Active Medications Generic Name Dose Route Start Last Admin Trade Name Freq PRN Reason Stop Dose Admin Aspirin 81 mg 01/18/20 09:00 01/18/20 09:33 Ecotrin PO 81 mg DAILY ALFONSO Administration Atorvastatin Calcium 40 mg 01/16/20 21:00 01/17/20 21:30 Lipitor PO 40 mg HS ALFONSO Administration Gabapentin 300 mg 01/16/20 09:00 01/18/20 09:33 Neurontin PO 300 mg TID ALFONSO Administration Levetiracetam 1,500 mg 01/17/20 21:00 01/18/20 09:33 Keppra PO 1,500 mg BID ALFONSO Administration Rivaroxaban 20 mg 01/16/20 18:00 01/17/20 18:37 Xarelto PO 20 mg 1800 ALFONSO Administration Sodium Chloride 10 ml 01/16/20 05:31 01/18/20 09:34 Flush - Normal Saline IVF 10 ml PRN PRN Administration Saline Flush - Exam General Appearance: awake alert Eye: PERRL ENT: normocephalic atraumatic Neck: supple Heart: RRR Respiratory: CTAB Gastrointestinal: soft Extremities: no cyanosis Skin: normal turgor Neurological: no new deficit, facial droop, hemiplegia, speech deficit Psychiatric: normal affect, normal behavior, A&O x 3, oriented to person, oriented to place, oriented to time Hosp A/P (1) Breakthrough seizure Code(s): G40.919 - EPILEPSY, UNSP, INTRACTABLE, WITHOUT STATUS EPILEPTICUS Status: Acute Plan: Continue Keppra dose 1500 mg twice daily. Observe seizure precautions. Ativan 2 mg IV for seizures greater than 2 minutes. EEG reviewed which was negative for seizures (2) Acute CVA (cerebrovascular accident) Code(s): I63.9 - CEREBRAL INFARCTION, UNSPECIFIED Status: Acute Plan: MRI brain reviewed which revealed acute infarction in left MCA territory Telemetry. Neurochecks every 4 hours. Strict BP and BG control . Continue xarelto. Continue aspirin and statin for secondary stroke prevention. PT/OT/Speech. 2D echo completed. Results noted. Carotid dopplers revealed Lt ICA significant stenosis. Consider CV surgery input. (3) Hypertension Code(s): I10 - ESSENTIAL (PRIMARY) HYPERTENSION Status: Acute Plan: Continue medical management per primary team. (4) Hyperlipidemia Code(s): E78.5 - HYPERLIPIDEMIA, UNSPECIFIED Status: Acute Plan: Continue high intensity statin for secondary stroke prevention. (5) Status post craniotomy Status: Acute Plan: Stable Neurosurgery on board.
--- NOTE | 2020-01-18 13:27 | PDOC.EVN ---
Event Note - Event Note Event Note: Pt needs more assistance with ADL an would benefit from increased provider hours for home health and home care
--- NOTE | 2020-01-18 16:05 | PDOC.HOSPP ---
- Subjective Encounter Date: 01/18/20 Encounter Time: 10:00 Subjective: The patient states that she has no headaches. No seizures overnight. CTA positive for embolus. Patient unable to move left arm which is baseline, but can move left leg. Right side she is able to move - Objective Vital Signs & Weight: Vital Signs (12 hours) Temp Pulse Pulse Resp BP BP Pulse Ox 01/18/20 14:56 98.0 F 76 16 95/57 L 99 01/18/20 11:22 98.3 F 77 16 92/58 L 98 01/18/20 08:50 78 92/57 L 01/18/20 07:52 97.5 F L 69 18 93/53 L 98 01/18/20 04:38 97.4 F L 63 14 92/52 L 96 Weight Admit Weight 157 lb 6.4 oz Weight 157 lb 6.4 oz I&O: 01/17/20 01/18/20 01/19/20 06:59 06:59 06:59 Intake Total 1560 1340 Output Total 650 600 Balance 910 740 Result Diagrams: 01/17/20 09:35 01/17/20 12:56 Hospitalist ROS - Review of Systems Constitutional: denies: fever, chills - Medication Medications: Active Medications Generic Name Dose Route Start Last Admin Trade Name Freq PRN Reason Stop Dose Admin Aspirin 81 mg 01/18/20 09:00 01/18/20 09:33 Ecotrin PO 81 mg DAILY ALFONSO Administration Atorvastatin Calcium 40 mg 01/16/20 21:00 01/17/20 21:30 Lipitor PO 40 mg HS ALFONSO Administration Gabapentin 300 mg 01/16/20 09:00 01/18/20 14:12 Neurontin PO 300 mg TID ALFONSO Administration Levetiracetam 1,500 mg 01/17/20 21:00 01/18/20 09:33 Keppra PO 1,500 mg BID ALFONSO Administration Rivaroxaban 20 mg 01/16/20 18:00 01/17/20 18:37 Xarelto PO 20 mg 1800 ALFONSO Administration Sodium Chloride 10 ml 01/16/20 05:31 01/18/20 09:34 Flush - Normal Saline IVF 10 ml PRN PRN Administration Saline Flush - Exam General Appearance: NAD, awake alert Eye: PERRL, anicteric sclera ENT: normocephalic atraumatic, no oropharyngeal lesions Neck: no JVD Heart: RRR, no murmur, no gallops, no rubs, normal peripheral pulses Respiratory: CTAB, no wheezes, no rales Gastrointestinal: soft, non-tender, non-distended, normal bowel sounds Extremities: no cyanosis, no clubbing, no edema Skin: normal turgor, no lesions, no rashes Neurological: cranial nerve grossly intact, normal sensation to touch, no focal deficits, no new deficit Neurological - other findings: cannot move left arm, can lift left leg. Dec strength left leg. 11/29 RUE/RLE Musculoskeletal: normal tone, normal strength, no muscle wasting Psychiatric: normal affect, normal behavior, A&O x 3, oriented to person Hosp A/P - Plan Carotid doppler: hemodynamically significant stenosis in the proximal left ICA. MRI brain: acute left MCA infarction CTA Neck: soft plaque formation, proximal ICA narrowing 60-70%. More distal end of thrombus encircled by contrast suggesting it is a free floating fragment This is a 39 year old female presenting with difficulty speaking, slurred speech , found to have a stroke Acute left MCA infarction with significant ICA stenosis - started aspirin 81 mg, continue xarelto and statin - carotid doppler showing hemodynamically significant stenosis in proximal left ICA. CTA neck shows possible thrombus - consulted vascular surgery, will likely perform surgery while here - home health on discharge Acute metabolic encephalopathy secondary to seizure - EEG normal per Dr Jacinto - continue keppra to oral 1500 mg bid #History of DVT and PFO #History of prior CVA with left sided weakness # History of intracranial shunt - continue xarelto - no hydrocephalus on exam. Per neurosurgery no further workup needed from that standpoint
[2020-01-18] MEDS ORDERED: Enoxaparin Sodium 80 MG/0.8 ML SYRINGE SC SCH ×2 (21:00)
[2020-01-18] MEDS: Atorvastatin Calcium 40 MG TAB PO SCH (21:12)
--- NOTE | 2020-01-19 00:57 | CON ---
DATE OF CONSULTATION: HISTORY OF PRESENT ILLNESS: This is a 39-year-old female, status post right hemispheric CVA about 3 years ago, requiring craniectomy. She was admitted Friday after 2 days of altered mental status and a couple of seizures. She had an MRI of the brain suggesting an acute left hemispheric stroke, and a CTA of her carotids showed a thrombus with trailing thrombus in her left internal carotid artery at the carotid bifurcation. Evidently, she was diagnosed as having DVT with paradoxical embolus due to a patent foramen ovale 3 years ago in [place] at the time of her prior stroke. However, the PFO was not fixed as they were waiting for her to resolve her craniectomy issues. She has seen Dr. Travis for this time; however, nothing has been done in particular. She has had a shunt for hydrocephalus as well as a PEG tube. OBJECTIVE: GENERAL: On examination, she is alert, cooperative lady with left arm complete paresis. She has some weakness in her left leg, but it is able to be moved. Speech appears normal during my examination. NECK: No carotid bruits. LUNGS: Clear to auscultation. CARDIAC: Regular rate and rhythm. She has no murmurs or gallops. ABDOMEN: She has a PEG tube. EXTREMITIES: Lower extremities, I do not appreciate any edema. She has palpable femoral pulse and I do not appreciate pedal pulses. Echocardiogram at this time without bubble study was normal. MRI as noted. CT angiogram as noted. Interestingly, her carotid Doppler study showed plaque in the proximal left ICA and bulb with apparent significant stenosis, but velocities were only elevated to 133 cm/second. At this time, I think that she probably needs thrombectomy and patch over left internal carotid artery and then consideration needs to be given to a PFO closure after appropriate echo studies confirm that she does have a PFO. Currently, she is maintained on Xarelto, and I will hold that tonight and plan on surgical intervention tomorrow. Job ID: [id number]
[2020-01-19] MEDS: Aspirin 81 mg Enteric Coated Tablet PO SCH (08:05)
[2020-01-19] MEDS: Gabapentin 300 MG CAP PO SCH ×3 (08:05→20:51)
[2020-01-19] MEDS: levETIRAcetam 500 MG TAB PO SCH ×2 (08:09→20:51)
--- NOTE | 2020-01-19 09:11 | CT ---
Exam: Head CT without contrast HISTORY: Cranial defect. Scan for cranioplasty. COMPARISON: 01/15/2020 FINDINGS: Hemorrhage: No intraparenchymal hemorrhage or extra-axial hematoma. Brain parenchyma: Stable volume loss involving the right cerebrum.Hypodensity in the left temporal lo be is noted. Ventricular system: Stable appearance of the ventricular system. No evidence of significant hydroceph alus. Stable left-sided ventriculoperitoneal shunt catheter. Calvarium: Postsurgical changes compatible with [place] hole defects and right calvarial craniectomy are noted. Sinuses and mastoid air cells: Mild mucosal thickening of the paranasal sinuses IMPRESSION: Stable postsurgical changes.
[2020-01-19] MEDS ORDERED: Fentanyl 100 MCG/2 ML VIAL ONE ×3 (09:19→13:14)
[2020-01-19] MEDS ORDERED: Midazolam HCl 2 mg/2 ml Vial ONE ×2 (09:19→10:19)
[2020-01-19] MEDS ORDERED: niCARdipine 25 MG/10 ML VIAL ONE (09:20)
[2020-01-19] MEDS ORDERED: Phenylephrine 10 MG/ML VIAL ONE (09:20)
[2020-01-19] MEDS ORDERED: Heparin 5,000 UNITS/ML VIAL ONE (10:21)
[2020-01-19] MEDS ORDERED: Protamine Sulfate 50 MG/5 ML VIAL ONE (10:21)
[2020-01-19] MEDS ORDERED: EPINEPHrine 1 MG/ML AMP ONE (11:36)
[2020-01-19] MEDS ORDERED: Bupivacaine PF 0.5% 30 ML VIAL ONE (11:36)
[2020-01-19] MEDS ORDERED: Glycopyrrolate 0.2 MG/ML 5 ML SYRINGE ONE (12:03)
[2020-01-19] MEDS ORDERED: Ondansetron PF 4 MG/2 ML Vial ONE (12:03)
[2020-01-19] MEDS ORDERED: Rocuronium Bromide 10 MG/ML (10ML VIAL) ONE (12:03)
[2020-01-19] MEDS ORDERED: Lidocaine 1% PF 5 ML VIAL ONE (12:03)
[2020-01-19] MEDS ORDERED: PROPOFOL 200 MG/20 ML VIAL ONE (12:03)
[2020-01-19] MEDS ORDERED: PHENYLEPHRINE-NS 100 MCG/ML 10 ML SYRINGE ONE (12:03)
[2020-01-19] MEDS ORDERED: PACU-Morphine 4MG/ML VIAL SLOW IVP PRN (12:07)
[2020-01-19] MEDS ORDERED: Promethazine HCl 25 MG/ML VIAL SLOW IVP PRN (12:07)
[2020-01-19] MEDS ORDERED: Promethazine HCl 25 MG/ML VIAL IM PRN (12:07)
[2020-01-19] MEDS ORDERED: Ondansetron HCl/PF 4 MG/2 ML Vial IVP PRN (12:07)
[2020-01-19] MEDS ORDERED: HYDROmorphone 2 MG/ML VIAL SLOW IVP PRN (12:07)
--- NOTE | 2020-01-19 14:14 | PDOC.HOSPP ---
- Subjective Encounter Date: 01/19/20 Encounter Time: 08:00 Subjective: The patient is doing well. She is scheduled for carotid endarterectomy today . She has no new weakness or numbness on right side - Objective Vital Signs & Weight: Vital Signs (12 hours) Temp Pulse Resp BP BP BP Pulse Ox 01/19/20 07:51 98.1 F 64 16 89/50 L 98 01/19/20 06:10 99/56 L 01/19/20 05:39 97.6 F 64 20 82/50 L 98 Weight Admit Weight 157 lb 6.4 oz Weight 157 lb 6.4 oz I&O: 01/18/20 01/19/20 01/20/20 06:59 06:59 06:59 Intake Total 1340 900 Output Total 600 475 Balance 740 425 Result Diagrams: 01/17/20 09:35 01/17/20 12:56 Hospitalist ROS - Review of Systems Constitutional: denies: fever, chills - Medication Medications: Active Medications Generic Name Dose Route Start Last Admin Trade Name Justusq PRN Reason Stop Dose Admin Aspirin 81 mg 01/18/20 09:00 01/19/20 08:05 Ecotrin PO 81 mg DAILY ALFONSO Administration Atorvastatin Calcium 40 mg 01/16/20 21:00 01/18/20 21:12 Lipitor PO 40 mg HS ALFONSO Administration Enoxaparin Sodium 80 mg 01/18/20 21:00 01/18/20 21:13 Lovenox SC 80 mg 2100 ALFONSO Administration Gabapentin 300 mg 01/16/20 09:00 01/19/20 08:05 Neurontin PO 300 mg TID ALFONSO Administration Levetiracetam 1,500 mg 01/17/20 21:00 01/19/20 08:09 Keppra PO 1,500 mg BID ALFONSO Administration Sodium Chloride 10 ml 01/16/20 05:31 01/18/20 09:34 Flush - Normal Saline IVF 10 ml PRN PRN Administration Saline Flush - Exam General Appearance: NAD, awake alert General - other findings: craniotomy on the right side Eye: PERRL, anicteric sclera ENT: normocephalic atraumatic, no oropharyngeal lesions Neck: no JVD Heart: RRR, no murmur, no gallops, no rubs Respiratory: CTAB, no wheezes, no rales, no ronchi Gastrointestinal: soft, non-tender, non-distended, normal bowel sounds Extremities: no cyanosis, no clubbing, no edema Skin: normal turgor, no lesions, no rashes Neurological: cranial nerve grossly intact, normal sensation to touch, no focal deficits, no new deficit Neurological - other findings: chronic weakness on left side. 5/5 strength and ROM right side Hosp A/P - Plan Carotid doppler: hemodynamically significant stenosis in the proximal left ICA. MRI brain: acute left MCA infarction CTA Neck: soft plaque formation, proximal ICA narrowing 60-70%. More distal end of thrombus encircled by contrast suggesting it is a free floating fragment This is a 39 year old female presenting with difficulty speaking, slurred speech , found to have a stroke Acute left MCA infarction with significant ICA stenosis - started aspirin 81 mg, continue xarelto and statin - carotid doppler showing hemodynamically significant stenosis in proximal left ICA. CTA neck shows possible thrombus - consulted vascular surgery, plan for carotid endarterectomy today Acute metabolic encephalopathy secondary to seizure - EEG normal per Dr Jacinto - continue keppra oral 1500 mg bid #History of DVT and PFO #History of prior CVA with left sided weakness # History of intracranial shunt - continue xarelto - no hydrocephalus on exam. Per neurosurgery no further workup needed from that standpoint - will need PFO correction as an outpatient.
[2020-01-19] MEDS ORDERED: traMADol HCl 50 MG TAB PO PRN (16:20)
[2020-01-19] MEDS ORDERED: Ondansetron PF 4 MG/2 ML Vial IVP PRN (16:20)
[2020-01-19] MEDS ORDERED: Fentanyl 100 MCG/2 ML VIAL SLOW IVP PRN (16:20)
[2020-01-19] MEDS ORDERED: Ketorolac Tromethamine 30 MG/ML VIAL IVP PRN (16:20)
[2020-01-19] MEDS ORDERED: Sodium Chloride 0.9% 1,000 ML IV SCH (16:20)
--- NOTE | 2020-01-19 18:11 | PDOC.EVN ---
Event Note - Event Note Event Note: Attempted calling mother twice without success
[2020-01-19] MEDS: Atorvastatin Calcium 40 MG TAB PO SCH (20:51)
[2020-01-19] MEDS ORDERED: Enoxaparin Sodium 40 MG/0.4 ML SYRINGE SC SCH (21:00)
--- NOTE | 2020-01-20 08:54 | OP ---
DATE OF PROCEDURE: 01/19/2020 PREOPERATIVE DIAGNOSIS: Thrombus, internal carotid artery. POSTOPERATIVE DIAGNOSIS: Thrombus, internal carotid artery. PROCEDURE PERFORMED: Thrombectomy with patch angioplasty, left internal carotid artery. DESCRIPTION OF PROCEDURE: After adequate anesthesia had been obtained, ultrasound had been used to mauri the proposed site of incision and it was carried out. After exposing the common internal and external carotid artery, the patient was heparinized and a tape placed around the common and external carotid artery. Care was taken to minimize manipulation. Following heparinization, clamp was applied to the external common carotid artery and arteriotomy performed. There was fresh thrombus in the bulb region and in the process of opening the incision, this was aspirated in the suction. There was a small posterior branch in the ICA that was bleeding, which did make visualization somewhat difficult. Following this, there was good back bleeding from the ICA and a 10-Malay shunt was then placed. There was no endarterectomy to be performed and a patch was then used to close the arteriotomy using a bovine patch and a running 6-0 Prolene suture. Prior to completing the suture line, the shunt was removed. Vessels backflushed and forward flushed. ACT level had been checked post heparinization. After closing the arteriotomy, flow was restored up the external and then internal carotid artery. Protamine was given to partially reverse the heparin. Following which, the wound was closed after obtaining good hemostasis. The patient is to be taken to the recovery room in guarded condition. Job ID: [id number]
[2020-01-20] MEDS: Aspirin 81 mg Enteric Coated Tablet PO SCH (09:45)
[2020-01-20] MEDS: Gabapentin 300 MG CAP PO SCH (09:45)
[2020-01-20] MEDS: levETIRAcetam 500 MG TAB PO SCH (09:45)
[2020-01-20 11:37] VITALS: TEMP 98
[2020-01-20 12:02] VITALS: BP 107/68
--- NOTE | 2020-01-20 12:38 | PDOC.HOSPP ---
- Subjective Encounter Date: 01/20/20 Subjective: NEUROLOGY PROGRESS NOTE Patient alert , awake and following commands. No further seizures since admission. Keppra dose increased which she tolerated well. EEG negative for seizures. CEA done during this admission. Tolerated the procedure well. - Objective Vital Signs & Weight: Vital Signs (12 hours) Temp Pulse Pulse Pulse Resp BP BP 01/20/20 11:35 98.0 F 76 16 01/20/20 10:15 74 76 107/68 105/72 01/20/20 07:41 98.7 F 77 18 01/20/20 04:00 98.2 F 64 14 BP BP Pulse Ox 01/20/20 11:35 94/53 L 99 01/20/20 10:15 01/20/20 07:41 95/62 100 01/20/20 04:00 101/59 L 100 Weight Admit Weight 157 lb 6.4 oz Weight 157 lb 6.4 oz I&O: 01/19/20 01/20/20 01/21/20 06:59 06:59 06:59 Intake Total 900 360 Output Total 475 401 800 Balance 425 -41 -976 Result Diagrams: 01/17/20 09:35 01/17/20 12:56 Radiology Reviewed by me: Yes EKG Reviewed by me: Yes Hospitalist ROS - Review of Systems Constitutional: denies: fever, chills, sweats, weakness, malaise, other Eyes: denies: pain, vision change, conjunctivae inflammation, eyelid inflammation, redness, other ENT: denies: ear pain, ear discharge, nose pain, nose discharge, nose congestion , mouth pain, mouth swelling, throat pain, throat swelling, other Respiratory: denies: cough, dry, shortness of breath, hemoptysis, SOB with excertion, pleuritic pain, sputum, wheezing, other Cardiovascular: denies: chest pain, palpitations, orthopnea, paroxysmal noc. dyspnea, edema, light headedness, other Gastrointestinal: denies: nausea, vomiting, abdominal pain, diarrhea, constipation, melena, hematochezia, other Genitourinary: denies: dysuria, frequency, incontinence, hematuria, retention, other Musculoskeletal: denies: neck pain, shoulder pain, arm pain, back pain, hand pain, leg pain, foot pain, other Skin: denies: rash, lesions, kwabena, bruising, other Neurological: denies: weakness, numbness, incoordination, change in speech, confusion, seizures, other - Exam General Appearance: awake alert Eye: PERRL ENT: normocephalic atraumatic Neck: supple Heart: RRR Respiratory: CTAB Gastrointestinal: soft Extremities: no cyanosis Skin: normal turgor Neurological: no new deficit, hemiplegia, speech deficit Psychiatric: normal affect, normal behavior, A&O x 3, oriented to person, oriented to place, oriented to time Hosp A/P (1) Breakthrough seizure Code(s): G40.919 - EPILEPSY, UNSP, INTRACTABLE, WITHOUT STATUS EPILEPTICUS Status: Acute Plan: Continue Keppra dose 1500 mg twice daily. Observe seizure precautions. Ativan 2 mg IV for seizures greater than 2 minutes. EEG reviewed which was negative for seizures Follow up with primary neurologist as outpatient in a month. Plan discussed with patient and mother (2) Acute CVA (cerebrovascular accident) Code(s): I63.9 - CEREBRAL INFARCTION, UNSPECIFIED Status: Acute Plan: MRI brain reviewed which revealed acute infarction in left MCA territory Telemetry. Neurochecks every 4 hours. Strict BP and BG control . Continue xarelto. Continue aspirin and statin for secondary stroke prevention. PT/OT/Speech. 2D echo completed. Results noted. Carotid dopplers revealed Lt ICA significant stenosis. CEA performed during this admission. Recovered well (3) Hypertension Code(s): I10 - ESSENTIAL (PRIMARY) HYPERTENSION Status: Acute Plan: Strict control of BP Continue medical management per primary team. (4) Hyperlipidemia Code(s): E78.5 - HYPERLIPIDEMIA, UNSPECIFIED Status: Acute Plan: Continue high intensity statin for secondary stroke prevention. (5) Status post craniotomy Status: Acute Plan: Stable Neurosurgery on board. - Plan plan discussed w/ family Plan communicated with primary attending Dr. Tristan.
--- NOTE | 2020-01-21 02:59 | DIS ---
DATE OF ADMISSION: 01/16/2020 DATE OF DISCHARGE: 01/20/2020 DISCHARGE DIAGNOSES: 1. 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 2. Seizures, likely secondary to stroke. 3. Acute metabolic encephalopathy secondary to seizure. CONSULTATIONS: 1. Dr. Robb Lau with Neurology 2. Dione Billings with Neurosurgery 3. Dr. Hector Fine with Vascular Surgery. PROCEDURES: 1. Internal carotid artery thrombectomy with patch angioplasty on the left side on 01/18. 2. EEG: no evidence of seizure BRIEF HISTORY OF PRESENT ILLNESS: This is a 39-year-old female, who presented to the hospital with seizures. Patient stated that she had not had any seizures in three years, however, had three consecutive seizures on the day of evaluation. She went to an outside hospital and they did a CT scan, which was apparently unremarkable. Patient's grandmother transferred the patient here since she was told they would not feed her for 3 days. Upon arrival to the emergency room, patient did not have any new neuro deficits. She does have a baseline left-sided deficit from an old stroke. She was admitted for further workup. HOSPITAL COURSE: Acute left MCA infarction secondary to left internal carotid artery thrombus: MRI brain showed acute left MCA infarction. Carotid Dopplers n showed hemodynamically significant stenosis in the proximal left ICA. CT angiography showed prominent soft plaque formation over the proximal ICA with 60% to 70% narrowing with the distal end of the thrombus encircled like contrast suggesting a free-floating fragment. Patient had a repeat CT scan of the brain on the , which showed no hemorrhagic changes. Vascular Surgery was consulted and the patient underwent a thrombectomy of her internal carotid artery with patch angioplasty on 01/18. Patient tolerated the procedure well and had no neuro deficits. Echo was unremarkable. Patient will be discharged on aspirin, Xarelto, and statin. She will follow up with Dr. Fine in [address] Fine is also working on arranging for her to have her PFO fixed as an outpatient to prevent future stroke. Seizure: the patient had a seizure outside the hospital. She was seen by neurology and had an EEG which showed no seizure. Her Keppra was increased to 1500 mg p.o. b.i.d. She will follow up with her neurologist, Dr. Lau in 1 to 2 weeks. History of intracranial shunt: Patient was seen by Neurosurgery in consultation due to the family's concern that the patient's shunt was full. However, on MRI of the brain, patient did not have any hydrocephalus or any displacement of her shunt. Her shunt was reprogrammed to 1.5 after her MRI. She will follow up with Dr. Travis as an outpatient with regard to synthetic bone implant and cranioplasty. DISCHARGE PHYSICAL EXAMINATION: VITAL SIGNS: Temperature 98, heart rate 76, respiratory rate 16, O2 saturation 99% on room air, and blood pressure 94/53. GENERAL: Patient is alert, awake, and oriented x3. CVS: Regular rate and rhythm with no murmurs, rubs, or gallops. LUNGS: Clear to auscultation bilaterally. ABDOMEN: Positive bowel sounds, soft, nontender, nondistended. NEUROLOGIC: Patient's cranial nerves 2 through 12 are intact. She is unable to lift up her left arm, which is her baseline. She is able to lift her left leg up slightly. She has 5/5 strength on her right arm and right leg. She has full range of motion of her right arm and right leg. She has normal sensation in all 4 extremities. PERTINENT LABORATORY DATA: CBC, 01/16: Normal. BMP, 01/16: Mildly elevated chloride of 108. Rest of BMP unremarkable. Lipid panel: Cholesterol 65, LDL 30, and HDL 29. Prolactin: 10.96. UA, 01/16: Turbid urine, 30 of protein, 3+ blood, 1+ nitrite, 250 leukocyte esterase, greater than 50 rbc's, 11 to 20 white blood cells. PERTINENT IMAGING: MRI brain, 01/15: Acute left MCA infarction. CTA 01/16: Very prominent soft plaque formation over a fairly long segment of the proximal ICA with 60% to 70% narrowing. The more distal end of the thrombus is encircled by contrast suggesting this is a free-floating fragment in the possibility that this could embolize be a strong consideration. Carotid Doppler, 01/16: Hemodynamically significant stenosis in the proximal left ICA. CT brain, 01/18: Shows stable postsurgical changes. Echo, 01/15: EF 60% to 65%. Unremarkable. DISCHARGE CONDITION: Stable. ACTIVITY: As tolerated. DIET: Regular diet. DISCHARGE MEDICATIONS: 1. Aspirin 81 mg p.o. daily. 2. Atorvastatin 40 mg p.o. at bedtime. 3. Keppra 1500 mg p.o. b.i.d. 4. Xarelto 20 mg p.o. daily. 5. Gabapentin 300 mg p.o. t.i.d. DISCHARGE DATA: Patient is to follow up with her PCP in a week. She should follow up with Dr. Lau in 1 to 2 weeks. She should follow up with Dr. Fine in 2 weeks. She needs to get her PFO fixed as an outpatient. Job ID: [id number] [facility]
== END 2020-01-20 12:14 | disposition home or self-care (01) | DRG 37 ==
LOC: ERS 01:08 → OBSVTOIN 02:04 → 2SE 02:04 → ERS 03:37 → CCU 01-19 15:06 → 2SE 01-19 18:40
PROVIDERS: ADMIT Internal Medicine; ATTEND Internal Medicine
PROC: 03CL0ZZ Extirpation of Matter from Left Internal Carotid Artery, Open Approach (ICD-10-PCS; principal; 2020-01-19)
PROC: 03UL0KZ Supplement Left Internal Carotid Artery with Nonautologous Tissue Substitute, Open Approach (ICD-10-PCS; 2020-01-19)
DX: I63.032 Cerebral infarction due to thrombosis of left carotid artery (principal); G93.41 Metabolic encephalopathy; G40.919 Epilepsy, unspecified, intractable, without status epilepticus; I69.354 Hemiplegia and hemiparesis following cerebral infarction affecting left non-dominant side; I10 Essential (primary) hypertension; E78.5 Hyperlipidemia, unspecified; R47.81 Slurred speech; R29.810 Facial weakness; Z79.01 Long term (current) use of anticoagulants; Z98.51 Tubal ligation status; Z93.1 Gastrostomy status; Z99.3 Dependence on wheelchair; Z86.718 Personal history of other venous thrombosis and embolism; Z98.2 Presence of cerebrospinal fluid drainage device
CPT/HCPCS: 36415; 70450; 70498; 70551; 80048; 80061; 81003; 81015; 84146; 85025; 85027; 93306; 93880; 95712; 95819; 95957; 96374; 96375; 96376; G0378; J0171; J0690; J1642; J1644; J1650; J1885; J1953; J2001; J2250; J2370; J2405; J2704; J2720; J3010; Q9967; S0020

== ENCOUNTER 2020-06-29 06:46 | Outpatient (CLI) | payer MEDICARE, MEDICAID ==
[2020-06-29 14:10] LABS: Hemoglobin 11.3 g/dL (12.0-16.0); Mean Corpuscular HGB CONC 30.7 G/DL (32.0-36.0); Mean Corpuscular Volume 78.3 fl (80.0-100.0); Mean Platelet Volume 10.2 fl (7.4-10.4); Platelet Count 305 10x3/uL (130-400); RBC Distribution Width 15.5 % (11.5-14.5); White Blood Cell (WBC) Count 8.5 10x3/uL (4.5-11.0)
[2020-06-29 14:29] LABS: PTT 25.1 sec (22.0-33.0); Prothrombin Time 10.5 sec (9.5-12.1)
[2020-06-30 03:06] LABS: SARS-CoV-2 MS2 Positive; SARS-CoV-2 N Gene Negative; SARS-CoV-2 S Gene Negative; SARS-CoV-2 by NAA Not Detected (NotDetected); SARS-CoV-2 orf1ab Negative
== END 2020-06-29 06:47 | disposition home or self-care (01) ==
LOC: LABBT 06:46
PROVIDERS: ATTEND Internal Medicine
DX: Z01.812 Encounter for preprocedural laboratory examination (principal); Z20.828 Contact with and (suspected) exposure to other viral communicable diseases
CPT/HCPCS: 85027; 85610; 85730; U0003; 87635

== ENCOUNTER 2020-06-29 12:30 | Inpatient (IN) | payer MEDICARE, MEDICAID ==
[2020-07-03 13:36] VITALS: BMI 22.4
--- NOTE | 2020-07-04 04:47 | HP ---
REASON FOR H AND P: Surgery on 07/04/2020. Case number is [id number]. HISTORY OF PRESENT ILLNESS: Ms. Sue is a 39-year-old female, who had a large MCA stroke in the right hemisphere requiring craniectomy done in [place] by Dr. Saud Gaytan. She currently lives with her sister now in [place]. Her [place] bone flap is in [place] and does not want to drive back and have the surgery there. The necessary scans were done and she had a 3D printed plastic substitute instead. She would like to proceed with the operation, i.e. right cranioplasty. REVIEW OF SYSTEMS: CONSTITUTIONAL: Denies fever or chills. ENT: Denies change in vision or hearing. CARDIAC: Denies chest pain, shortness of breath, or diaphoresis. PULMONARY: Denies shortness of breath, cough, or hemoptysis. GI: Denies abdominal pain, nausea, vomiting, diarrhea, change in stool formation and consistency. : Denies trouble with urination, frequency of urination, or bloody urine. SKIN: Denies skin rash, bruising, bleeding, or skin masses. MUSCULOSKELETAL: As per history of present illness. NEUROLOGICAL: As per history of present illness. PSYCHOLOGICAL: As per history of present illness. MEDICAL HISTORY: Anxiety, blood clots, chronic pain, migraine, stroke, and depression. SURGICAL HISTORY: Tubal ligation in 2004. Blood clots 07/2017, Craniectomy 2017. [employer] shunt. Left carotid endarterectomy. PEG feeding tube in February 2020. HOSPITALIZATIONS: Stroke in 2018. FAMILY HISTORY: Father, alive. Mother, alive. Siblings, alive. Daughter, alive. SOCIAL HISTORY: Nonsmoker. Occasional alcohol. Denies illicit drug use. ALLERGIES: NO KNOWN DRUG ALLERGIES. MEDICATIONS: 1. Plavix 75 mg. 2. Aspirin 81 mg. 3. Gabapentin 600 mg. 4. Atorvastatin 40 mg. 5. Keppra 1500 mg. PHYSICAL EXAMINATION: VITAL SIGNS: Weight 187 pounds and height 5 feet 4 inches. HEENT: Pupils are equal. Extraocular movements are intact. NECK: Soft and supple. No masses are noted. Range of motion is intact and nonpainful. NEUROLOGICAL: Awake, alert, and oriented x3. Memory, attention, and fund of knowledge normal. Cranial nerves are grossly intact. HEAD: Large cranial deficit on the right head plus sunken scalp. Gait and station, in a wheelchair. Needs assistance to mobilize. Weak left leg. Motor exam, dense left hemiparesis. ASSESSMENT: Skull defect. PLAN: 1. Right cranioplasty. 2. Anesthesia clearance. 3. Preop labs; CBC, PT, PTT, and COVID-19. Hold aspirin and Plavix 7 days before surgery. May resume 14 days after surgery. INFORMED CONSENT: We discussed the indications, risks, benefits, alternatives, and expected results from surgery. The risks discussed included, but were not limited to infection, bleeding, CSF leak, brain damage, significant loss of neurological function, seizure, stroke, dependency for normal care, cardiopulmonary complications of anesthesia, or . Long-term complications discussed included, but were not limited to recurrent and future surgeries. She understands the risks and is willing to proceed. Job ID: [id number] [facility]
[2020-07-04] MEDS ORDERED: levETIRAcetam in NS 0 ML ONE (06:49)
[2020-07-04] MEDS ORDERED: Albumin 5% 500 ML ONE (06:49)
[2020-07-04] MEDS ORDERED: levETIRAcetam 500 MG/100 ML PREMIX BAG ONE (06:49)
[2020-07-04] MEDS ORDERED: Fentanyl 250 MCG/5 ML VIAL ONE (06:49)
[2020-07-04] MEDS ORDERED: Propofol 1,000 MG/100 ML VIAL IV ONE (07:12)
[2020-07-04] MEDS ORDERED: Lidocaine 0.5%/Epinephrine 1:200,000 50 ml Vial ONE (07:39)
[2020-07-04] MEDS ORDERED: Thrombin 5000 UNITS/5 ML VIAL ONE (08:22)
[2020-07-04] MEDS ORDERED: HYDROmorphone 2 MG/ML VIAL SLOW IVP PRN (09:10)
[2020-07-04] MEDS ORDERED: PACU-Morphine 4MG/ML VIAL SLOW IVP PRN (09:10)
[2020-07-04] MEDS ORDERED: Promethazine HCl 25 MG/ML VIAL SLOW IVP PRN (09:10)
[2020-07-04] MEDS ORDERED: Morphine Sulfate 2 MG/ML SYRINGE SLOW IVP PRN (09:10)
[2020-07-04] MEDS ORDERED: Ondansetron HCl/PF 4 MG/2 ML Vial IVP PRN (09:10)
[2020-07-04] MEDS ORDERED: Promethazine HCl 25 MG/ML VIAL IM PRN ×2 (09:10→10:59)
[2020-07-04] MEDS ORDERED: Fentanyl 100 MCG/2 ML VIAL ONE ×3 (10:53→13:43)
[2020-07-04] MEDS ORDERED: SUGAMMADEX SODIUM 200 MG/2 ML VIAL ONE (10:59)
[2020-07-04] MEDS ORDERED: Promethazine 25 MG TAB PO PRN (10:59)
[2020-07-04] MEDS ORDERED: Scopolamine 1.5 mg/72 hour Patch TD PRN (11:03)
[2020-07-04] MEDS ORDERED: traMADol HCl 50 MG TAB PO PRN (11:03)
[2020-07-04] MEDS ORDERED: Milk Of Magnesia 30 ML UDCUP PO PRN (11:03)
[2020-07-04] MEDS ORDERED: diphenhydrAMINE 25 MG CAP PO PRN (11:03)
[2020-07-04] MEDS ORDERED: Morphine 2 MG/ML VIAL SLOW IVP PRN (11:03)
[2020-07-04] MEDS ORDERED: Mag-Al 1200 mg/1200 mg/30 ML UDCUP PO PRN (11:03)
[2020-07-04] MEDS ORDERED: Dexamethasone 20 MG/5 ML VIAL ONE (11:38)
[2020-07-04] MEDS ORDERED: PROPOFOL 200 MG/20 ML VIAL ONE (11:38)
[2020-07-04] MEDS ORDERED: Esmolol 100 MG/10 ML VIAL ONE ×2 (11:38)
[2020-07-04] MEDS ORDERED: Ondansetron PF 4 MG/2 ML Vial ONE (11:38)
--- NOTE | 2020-07-04 11:43 | OP ---
DATE OF PROCEDURE: 07/04/2020 CUSTOMER SALES REPRESENTATIVE: Rick Orellana PA-C. PREOPERATIVE INDICATION: Prevent brain injury. PREOPERATIVE DIAGNOSES: Prior large right MCA stroke with craniectomy, right cranial skull defect (original surgery in [place] and no upper [place] skull flap available). POSTOPERATIVE DIAGNOSES: Prior large right MCA stroke with craniectomy, right cranial skull defect (original surgery in [place] and no upper [place] skull flap available). PROCEDURES PERFORMED: Reopening craniotomy incision, cranioplasty greater than 15 cm in maximal diameter, use of a custom fit cranial flap, scalp advancement closure. PREOPERATIVE MEDICATION: Ancef 2 g IV. DRAIN NUMBER: 0. DRAIN TYPE: None. DESCRIPTION OF PROCEDURE: The patient was brought to the operating room. General endotracheal anesthesia was induced. The patient was positioned supine on the operating table with her head supported by a donut-shaped headrest. The head was turned to the left. We removed hair with electric clippers. We marked out the previous incision and infused local anesthetic under it. We prepped the right side of the scalp. We draped in the usual fashion. We opened with a 10 blade knife. We developed the plane between the galea and the dura and dural substitute used by the previous surgeon. In dissecting in this plane, we managed to fold our scalp flap forward and held it in place under fishhooks. The temporalis muscle was attached to the dura. We elevated most of that muscle until we could view the temporal bone craniotomy edge beneath it. We left a small pledget of muscle on the dura with some blood supply in case it was providing collateral flow. The patient's custom fit machined PEEK skull flap was opened sterilely. It was brought into the field. We marked out areas where we would attach it with plates and screws. We drilled out recess for each of the plates and screws, both in the upper [place] bone and the replacement flap. We attached the flap with titanium plates and screws. We then began the arduous process of closure. The patient's scalp had shrunk in the years since her craniectomy. We needed to dissect the periosteum and galea off the bone circumferentially around our incision. We had to score the galea in multiple areas for the flap and score the galea around the incision to allow the scalp to mobilize enough to close. We placed 0 Vicryl and #1 nylon sutures as temporary retention sutures as we placed 2-0 nylon vertical mattress sutures around the entire incision. We got the skin to touch finally and removed our tension sutures. There were tiny gaps between the skin edges, which needed to be closed. We closed these with a running 4-0 Prolene around the entire incision. We are planning on removing the Prolene at 10 to 14 days and the vertical mattress sutures at 3 to 4 weeks. Prior to closure, we treated the wound with vancomycin powder. We applied sterile dressings after closure. This was a clean case, no contamination. Job ID: [id number]
[2020-07-04] MEDS: CEFAZOLIN 2 GM in Premix Bag 1 BAG IVPB SCH ×2 (15:00→21:01)
[2020-07-04] MEDS: Sodium Chloride 0.9% 1,000 ML IV SCH (15:03)
[2020-07-04] MEDS: Gabapentin 300 MG CAP PO SCH ×2 (15:05→20:55)
[2020-07-04] MEDS: Acetaminophen/Codeine 30-300mg Tablet PO PRN ×2 (17:52→20:58)
[2020-07-04] MEDS: levETIRAcetam 500 MG TAB PO SCH (20:55)
[2020-07-04] MEDS: Acetaminophen 325 MG TAB PO PRN (20:58)
[2020-07-04] MEDS ORDERED: Atorvastatin Calcium 40 MG TAB PO SCH (21:00)
[2020-07-05] MEDS: Sodium Chloride 0.9% 1,000 ML IV SCH (03:27)
--- NOTE | 2020-07-05 07:50 | PRG ---
DATE OF SERVICE: 07/05/2020 I saw Trini Sue in our hospital room this morning. A head wrap is in place. We placed the cranioplasty yesterday with a PEEK machine cranial replacement. We stretched the scalp to get it closed and were successful in doing so. Ms. Sue is feeling well this morning. Her vital signs are stable. She has no new neurological deficit other than the left hemiparesis from her right MCA stroke. We can discharge her today, but she needs to remove the head wrap tomorrow and shower tomorrow night or the next day. We went over wound care and will make followup arrangements in our clinic to remove the running skin sutures in about 7 to 10 days after surgery and then the vertical mattress sutures at about 3 to 4 weeks. Job ID: [id number] [facility]
[2020-07-05] MEDS: Acetaminophen 325 MG TAB PO PRN (08:25)
[2020-07-05] MEDS: Acetaminophen/Codeine 30-300mg Tablet PO PRN (08:26)
[2020-07-05] MEDS: Gabapentin 300 MG CAP PO SCH (09:07)
[2020-07-05] MEDS: levETIRAcetam 500 MG TAB PO SCH (09:08)
[2020-07-05 09:55] VITALS: BP 111/70; TEMP 99.1
== END 2020-07-05 13:13 | disposition home or self-care (01) | DRG 983 ==
LOC: SURG A 07-04 05:41 → SURG B 07-04 14:40
PROVIDERS: ADMIT Neurological Surgery; ATTEND Neurological Surgery
PROC: 0NR50JZ Replacement of Right Temporal Bone with Synthetic Substitute, Open Approach (ICD-10-PCS; principal; 2020-07-04)
DX: Z42.8 Encounter for other plastic and reconstructive surgery following medical procedure or healed injury (principal); M95.2 Other acquired deformity of head; F41.9 Anxiety disorder, unspecified; G89.29 Other chronic pain; F32.9 Major depressive disorder, single episode, unspecified; G43.909 Migraine, unspecified, not intractable, without status migrainosus; Z98.51 Tubal ligation status; Z98.890 Other specified postprocedural states; Z86.73 Personal history of transient ischemic attack (TIA), and cerebral infarction without residual deficits
CPT/HCPCS: 36415; 86850; 86900; 86901; 93005; 93010; C1713; J0690; J1100; J1953; J2001; J2405; J2550; J2704; J3010; J3370; J3490; P9045